=== PATIENT | male | born 1955 | race Caucasian/White ===

== ENCOUNTER 2024-11-09 17:12 | Inpatient (IN) | payer MEDICARE, OTHER ==
[~2024-11-09] VITALS: Ht 170.2 cm; Wt 90.7 kg
[2024-11-09 17:47] LABS: EOSINOPHILS # (AUTO) 0.1 K/uL (0.0-0.7); EOSINOPHILS % (AUTO) 2.2 % (0.0-6.0); LYMPHOCYTES # (AUTO) 1.1 K/uL (0.8-4.8); MEAN CORPUSCULAR HGB CONC 33 g/dl (31.0-36.0); MONOCYTES # (AUTO) 0.4 K/uL (0.1-1.30); NEUTROPHILS # (AUTO) 2.6 K/uL (1.8-8.9); RED CELL DISTRIBUTION WIDTH 16.4 % (11.5-15.0); WHITE BLOOD COUNT (AUTO) 4.2 K/uL (4.3-11.0)
[2024-11-09 17:49] LABS: BASOPHILS % (AUTO) 0.7 % (0.0-2.0); HEMATOCRIT 54 % (39-51); LYMPHOCYTES % (AUTO) 26.7 % (20.0-44.0); MEAN CORPUSCULAR HEMOGLOBIN 30 PG (26.0-33.0); MEAN CORPUSCULAR VOLUME 91 fL (80-96); MONOCYTES % (AUTO) 8.7 % (2.0-12.0); NEUTROPHILS % (AUTO) 61.7 % (43.0-81.0); PLATELET COUNT (AUTO) 124 K/uL (150-450); RED BLOOD CELL COUNT(AUTO) 5.94 MIL/uL (4.5-6.0)
[2024-11-09 18:06] LABS: INR 0.98 (0.91-1.10); PARTIAL THROMBOPLASTIN TIME 26.4 SEC (24.3-34.3); PROTHROMBIN TIME 10.1 SECS (9.2-11.1)
[2024-11-09] MEDS ORDERED: ATOR80TA PO (18:52)
[2024-11-09] MEDS ORDERED: SUCR1TAB PO (18:52)
[2024-11-09] MEDS ORDERED: CLOP75TA15 PO (18:52)
[2024-11-09] MEDS ORDERED: ESCI5TAB PO (18:52)
[2024-11-09] MEDS ORDERED: PANT40TA2 PO (18:52)
[2024-11-09] MEDS ORDERED: ZOLP10TA2 PO (18:52)
[2024-11-09] MEDS ORDERED: SACU1TAB7 PO (18:52)
[2024-11-09] MEDS ORDERED: ONDA8TAB65 PO (18:52)
[2024-11-09] MEDS ORDERED: LORA-258 PO (18:52)
[2024-11-09] MEDS ORDERED: ACYC400T19 PO (18:52)
[2024-11-09] MEDS ORDERED: POTA-88 PO (18:52)
[2024-11-09] MEDS ORDERED: ASPI-1169 PO (18:52)
[2024-11-09] MEDS ORDERED: CARV12.5 PO (18:52)
[2024-11-09] MEDS ORDERED: [UNRECOGNIZED DRUG - OTHER] PO (18:52)
[2024-11-09] MEDS ORDERED: TAMS-12 PO (18:52)
[2024-11-09] MEDS ORDERED: SENN8.6T19 PO (18:52)
[2024-11-09 18:59] LABS: CALCIUM, SERUM 9.2 mg/dL (8.5-10.1); CARBON DIOXIDE 26 mmol/L (21-32); CHLORIDE 107 mmol/L (98-107); CREATININE 1.4 mg/dL (0.6-1.3); GLUCOSE 113 mg/dL (74-106); POTASSIUM 4.1 mmol/L (3.5-5.1); SODIUM SERUM 141 mmol/L (136-145); UREA NITROGEN, BLOOD 17 mg/dL (7-18)
[2024-11-09 19:11] LABS: NT-PRO BNP 208 pg/mL (0-125)
[2024-11-09] MEDS ORDERED: MAG HYDROX/AL HYDROX/SIMETH 30 ML UDC PO PRN (22:00)
[2024-11-09] MEDS ORDERED: MAGNESIUM HYDROXIDE 30 ML UDC PO PRN (22:00)
[2024-11-09] MEDS ORDERED: Z GUARD REMEDY 4 OZ OINT TP PRN (22:00)
[2024-11-09] MEDS ORDERED: ONDANSETRON HCL/PF 4 MG/2 ML VIAL IVP PRN (22:00)
[2024-11-09 23:00] VITALS: BP 174/93; TEMP 98.6; O2SAT 95
[2024-11-09 23:15] VITALS: BP 179/100; TEMP 97.5; O2SAT 95
[2024-11-10] VITALS: BP 179/100; TEMP 97.5; O2SAT 95
[2024-11-10 00:50] VITALS: BP 165/95; TEMP 97.5; O2SAT 95
[2024-11-10] MEDS: ZOLPIDEM TARTRATE 5 MG TABLET PO PRN (01:07)
[2024-11-10] MEDS: hydrALAZINE HCL IV 20 MG VIAL IV PRN (01:08)
[2024-11-10 04:00] VITALS: BP 125/77; TEMP 97.5; TEMP 97.7; O2SAT 94
[2024-11-10 06:45] LABS: BASOPHILS % (AUTO) 0.4 % (0.0-2.0); EOSINOPHILS # (AUTO) 0.1 K/uL (0.0-0.7); EOSINOPHILS % (AUTO) 2.6 % (0.0-6.0); HEMATOCRIT 52 % (39-51); HEMOGLOBIN 17.9 g/dL (13.5-17.5); LYMPHOCYTES % (AUTO) 20.6 % (20.0-44.0); MEAN CORPUSCULAR HEMOGLOBIN 31 PG (26.0-33.0); MEAN CORPUSCULAR HGB CONC 35 g/dl (31.0-36.0); MEAN CORPUSCULAR VOLUME 89 fL (80-96); MONOCYTES # (AUTO) 0.4 K/uL (0.1-1.30); MONOCYTES % (AUTO) 9.4 % (2.0-12.0); NEUTROPHILS # (AUTO) 3.2 K/uL (1.8-8.9); PLATELET COUNT (AUTO) 118 K/uL (150-450); RED CELL DISTRIBUTION WIDTH 16.4 % (11.5-15.0); WHITE BLOOD COUNT (AUTO) 4.7 K/uL (4.3-11.0)
[2024-11-10 06:58] LABS: CALCIUM, SERUM 8.7 mg/dL (8.5-10.1); CARBON DIOXIDE 24 mmol/L (21-32); CHLORIDE 106 mmol/L (98-107); GLUCOSE 132 mg/dL (74-106); PHOSPHORUS 4.1 mg/dL (2.5-4.9); POTASSIUM 3.9 mmol/L (3.5-5.1); SODIUM SERUM 143 mmol/L (136-145); UREA NITROGEN, BLOOD 17 mg/dL (7-18)
[2024-11-10 08:00] VITALS: BP 158/91; TEMP 98.1; O2SAT 97
[2024-11-10] MEDS ORDERED: CARVEDILOL 12.5 MG TABLET PO SCH (09:00)
[2024-11-10] MEDS: ASPIRIN 81 MG TAB.CHEW PO SCH (09:02)
[2024-11-10] MEDS: ESCITALOPRAM OXALATE (10 MG) 10 MG TABLET PO SCH (09:02)
[2024-11-10] MEDS: TAMSULOSIN 0.4 MG CAP.SR.24H PO SCH (09:03)
[2024-11-10] MEDS: ACYCLOVIR 200 MG CAPSULE PO SCH (09:03)
[2024-11-10] MEDS: POTASSIUM CHLORIDE 20 MEQ TAB.PRT.SR PO SCH (09:03)
[2024-11-10] MEDS: SUCRALFATE 1 G TABLET PO SCH (09:03)
[2024-11-10] MEDS: ATORVASTATIN 40 MG TABLET PO SCH (09:03)
[2024-11-10] MEDS: PANTOPRAZOLE 40 MG TABLET.DR PO SCH (09:03)
[2024-11-10] MEDS: CLOPIDOGREL BISULFATE 75 MG TABLET PO SCH (09:03)
[2024-11-10] MEDS: LORAZEPAM 0.5 MG TABLET PO SCH (09:04)
[2024-11-10] MEDS: SENNOSIDES 8.6 MG TABLET PO SCH (09:04)
[2024-11-10] MEDS: CARVEDILOL 12.5 MG TABLET PO SCH (09:05)
[2024-11-10] MEDS: SACUBITRIL/VALSARTAN 49/51MG TABLET PO SCH (09:05)
[2024-11-10] MEDS ORDERED: METOPROLOL TARTRATE INJ 5 MG/5 ML AMPUL ONE (10:20)
[2024-11-10] MEDS ORDERED: NITROGLYCERIN 0.4 MG/TAB BOTTLE ONE (10:20)
[2024-11-10] MEDS ORDERED: IOHEXOL-350 100 ML VIAL IV ONE (10:20)
[2024-11-10] MEDS ORDERED: CT SWABBABLE VALVE TRANS SET 1 EA INFUS.SET MC ONE (10:20)
[2024-11-10] MEDS ORDERED: IV NS 0.9% 250 ML IV ONE (10:21)
[2024-11-10] MEDS: METOPROLOL TARTRATE INJ 5 MG/5 ML AMPUL IVP PRN (10:50)
[2024-11-10 11:17] VITALS: BP 147/67
[2024-11-10] MEDS: NITROGLYCERIN 0.4 MG/TAB BOTTLE SL ONE (11:17)
[2024-11-10] MEDS: ACETAMINOPHEN 325 MG TABLET PO PRN (12:08)
[2024-11-10] MEDS: ONDANSETRON 4 MG TAB.RAPDIS PO SCH (12:33)
[2024-11-10 13:07] VITALS: TEMP 98.2
== END 2024-11-10 16:11 | disposition home or self-care (01) | DRG 303 ==
LOC: ER 17:48 → TELE 22:51
DX: I25.10 Atherosclerotic heart disease of native coronary artery without angina pectoris (principal); C95.91 Leukemia, unspecified, in remission; K21.9 Gastro-esophageal reflux disease without esophagitis; Z95.5 Presence of coronary angioplasty implant and graft; Z79.02 Long term (current) use of antithrombotics/antiplatelets; Z79.82 Long term (current) use of aspirin; Z79.899 Other long term (current) drug therapy; F41.9 Anxiety disorder, unspecified; N40.0 Benign prostatic hyperplasia without lower urinary tract symptoms; E66.9 Obesity, unspecified; Z68.31 Body mass index [BMI] 31.0-31.9, adult; M89.8X9 Other specified disorders of bone, unspecified site; D75.1 Secondary polycythemia; I10 Essential (primary) hypertension; I16.0 Hypertensive urgency
CPT/HCPCS: 36415; 71045-TC; 75574; 80048-TC; 83735-TC; 83880; 84100-TC; 84484-TC; 85025-TC; 85730-TC; 93307-TC; G0378; J0360; J3490; J7050; Q0162; Q9967